=== PATIENT | female | born 1950 | race Caucasian/White ===

== ENCOUNTER 2023-01-17 10:35 | Outpatient (CLI) | payer MEDICARE, OTHER | END 2023-01-17 10:36 | disposition home or self-care (01) | LOC: BICMAMMO 10:35 | PROVIDERS: ATTEND Family Medicine | DX: Z12.31 Encounter for screening mammogram for malignant neoplasm of breast (principal); Z91.89 Other specified personal risk factors, not elsewhere classified | CPT/HCPCS: 77063; 77067 ==

== ENCOUNTER 2024-01-24 15:03 | Outpatient (CLI) | payer MEDICARE, OTHER ==
[2024-01-24 16:12] LABS: #Basophils 0.08 10x3/uL (0.0-0.2); %Eosinophils 3.3 % (0.0-10.0); %Lymphocytes 26.6 % (21.0-51.0); %Monocytes 10.7 % (0.0-10.0); Hemoglobin 13.9 g/dL (12.0-16.0); Mean Corpuscular HGB CONC 33.1 g/dL (32.0-36.0); Mean Corpuscular Volume 90.5 fL (78.0-98.0); Mean Platelet Volume 11.5 fL (7.4-10.4); Platelet Count 264 10x3/uL (130-400); RBC Distribution Width 13.1 % (11.5-14.5); Red Blood Cell (RBC) Count 4.64 mill/uL (4.20-5.40)
[2024-01-24 16:25] LABS: ALT (SGPT) 17 U/L (8-55); AST (SGOT) 17 U/L (5-34); Albumin 3.9 g/dL (3.4-4.8); Alkaline Phosphatase 106 U/L (40-110); Anion Gap 13 mmol/L (10-20); BUN (Urea Nitrogen) 22 mg/dL (9.8-20.1); Bilirubin, Total 1.3 mg/dL (0.2-1.2); Calc. Creatinine Clearance 0 mL/min (70-130); Calcium 9.7 mg/dL (7.8-10.44); Carbon Dioxide 26 mmol/L (23-31); Chloride 105 mmol/L (98-107); Estimated GFR 67; Globulin 3.1 g/dL (2.4-3.5); Glucose 94 mg/dL (83-110); Sodium 140 mmol/L (136-145)
== END 2024-01-24 15:04 | disposition home or self-care (01) ==
LOC: LABBT 15:03
PROVIDERS: ATTEND Internal Medicine Cardiovascular Disease
DX: Z01.818 Encounter for other preprocedural examination (principal); R06.02 Shortness of breath
CPT/HCPCS: 80053; 85025

== ENCOUNTER 2024-01-31 05:44 | Day surgery (SDC) | payer MEDICARE, OTHER ==
[2024-01-24 15:28] VITALS: BMI 29.9
[2024-01-31] MEDS ORDERED: fentaNYL 50 mcg/mL 1 mL Vial ONE (06:50)
[2024-01-31] MEDS ORDERED: Midazolam HCl 2 mg/2 ml Vial ONE (06:50)
[2024-01-31] MEDS ORDERED: Nitroglycerin 50 MG/250 ML BOT 0 ML ONE (06:51)
[2024-01-31] MEDS ORDERED: Heparin 10,000 UNITS/ 10 ML VIAL ONE (06:51)
[2024-01-31] MEDS ORDERED: EPINEPHrine 1 MG/10 ML Abboject SYRINGE ONE (11:10)
[2024-01-31] MEDS ORDERED: Iopamidol 370 76% 100 ML VIAL ONE (12:01)
== END 2024-01-31 13:13 | disposition home or self-care (01) ==
LOC: SDC 05:44
PROVIDERS: ATTEND Internal Medicine Cardiovascular Disease
PROC: 4A023N7 Measurement of Cardiac Sampling and Pressure, Left Heart, Percutaneous Approach (ICD-10-PCS; principal; 2024-01-31)
DX: R06.02 Shortness of breath (principal); R07.9 Chest pain, unspecified; R00.2 Palpitations; R53.83 Other fatigue; I10 Essential (primary) hypertension; I35.1 Nonrheumatic aortic (valve) insufficiency; I49.3 Ventricular premature depolarization; I47.29 Other ventricular tachycardia; E03.9 Hypothyroidism, unspecified; J45.909 Unspecified asthma, uncomplicated; Z90.710 Acquired absence of both cervix and uterus; Z90.89 Acquired absence of other organs; Z90.49 Acquired absence of other specified parts of digestive tract; Z87.59 Personal history of other complications of pregnancy, childbirth and the puerperium; Z79.890 Hormone replacement therapy; Z79.82 Long term (current) use of aspirin; Z79.899 Other long term (current) drug therapy
CPT/HCPCS: 93458; C1769; C1887; J0171; J2250; J3010; 99152; 99153; J1644; Q9967

== ENCOUNTER 2024-02-25 13:56 | Outpatient (CLI) | payer MEDICARE, OTHER ==
[2024-02-25] MEDS ORDERED: Iopamidol 370 76% 100 ML VIAL ONE (13:59)
== END 2024-02-25 13:57 | disposition home or self-care (01) ==
LOC: BICCT 13:56
PROVIDERS: ATTEND Internal Medicine Cardiovascular Disease
DX: I35.1 Nonrheumatic aortic (valve) insufficiency (principal)
CPT/HCPCS: 36415; 71275; 82565

== ENCOUNTER 2024-04-02 14:43 | Outpatient (CLI) | payer MEDICARE, OTHER | END 2024-04-02 14:44 | disposition home or self-care (01) | LOC: BICRAD 14:43 | PROVIDERS: ATTEND Family Medicine | DX: J45.901 Unspecified asthma with (acute) exacerbation (principal) | CPT/HCPCS: 71046 ==

== ENCOUNTER 2024-04-17 13:09 | Outpatient (CLI) | payer MEDICARE, OTHER ==
[2024-04-17] MEDS ORDERED: Magnevist 469MG/ML 20 ML VIAL ONE (15:06)
== END 2024-04-17 13:10 | disposition home or self-care (01) ==
LOC: BICMRI 13:09
PROVIDERS: ATTEND Family Medicine
DX: R41.3 Other amnesia (principal); R90.82 White matter disease, unspecified
CPT/HCPCS: 70553